=== PATIENT | female | born 1995 | race African-American/Black ===

== ENCOUNTER → 2025-01-02 | Day surgery (SDC) | payer OTHER ==
[2025-01-01 13:09] VITALS: BMI 24.0
[~2025-01-02] MED LIST: ACETAMINOPHEN INJECTION 100 ML ONE; ETOMIDATE 20 MG/10 ML VIAL IVPUSH ONE; FAMOTIDINE 20 MG/50 ML IVPB 20 MG/50 ML MG IVPB ONE; KETAMINE HCL 100 MG/ML - 5ML VIAL ONE; PROPOFOL 20 ML ONE
[2025-01-02 08:21] LABS: MCHC 32.7 g/dl (32.2-35.5); MEAN CELL VOLUME 86.4 fl (79.4-94.8); MEAN PLT VOLUME 9.4 fl (9.4-12.3); RDW 12.9 % (12.1-16.5)
[2025-01-02 08:44] LABS: ALK PHOS 55.0 U/L (45-117); CO2 26.0 mmol/L (21-32); CREATININE 0.9 mg/dl (0.6-1.3); GLUCOSE,RANDOM 84.0 mg/dl (74-106); SGOT/AST 9.0 U/L (15-37); SGPT/ALT 7.0 U/L (7-52); TOT PROT 7.2 g/dl (6.4-8.2)
[2025-01-02 11:17] VITALS: RESP 18
[2025-01-02] MEDS: ACETAMINOPHEN 1000 MG/100 ML BAG IVPB ONE (11:19)
[2025-01-02 11:41] VITALS: TEMP 97.1
[2025-01-02 13:44] VITALS: BP 98/64; PULSE 92
== END | disposition home or self-care (01) ==
LOC: FECT 07:38
PROVIDERS: ATTEND Student in an Organized Health Care Education/Training Program
PROC: GZB4ZZZ Other Electroconvulsive Therapy (ICD-10-PCS; principal; 2025-01-02 10:20)
DX: F32.A Depression, unspecified (principal)
CPT/HCPCS: 36415; 80053; 81025; 85027; 90870; 93005; 94760

== ENCOUNTER 2025-01-03 07:50 | Day surgery (SDC) | payer OTHER ==
[2025-01-01 13:14] VITALS: BMI 24.0
[2025-01-03 10:31] VITALS: RESP 20; TEMP 97.2
[2025-01-03 10:59] VITALS: BP 110/74; PULSE 82
== END 2025-01-03 10:45 | disposition home or self-care (01) ==
LOC: FECT 07:50
PROVIDERS: ATTEND Student in an Organized Health Care Education/Training Program
PROC: GZB4ZZZ Other Electroconvulsive Therapy (ICD-10-PCS; principal; 2025-01-03 09:19)
DX: F32.A Depression, unspecified (principal)
CPT/HCPCS: 90870; 94760